=== PATIENT | female | born 1985 | race Caucasian/White ===

== ENCOUNTER 2017-10-14 15:31 | Outpatient (CLI) | payer BC, OTHER | END 2017-10-14 17:55 | disposition home or self-care (01) | LOC: OBT 15:31 → L-D 15:33 → OBT 17:55 | DX: O26.893 Other specified pregnancy related conditions, third trimester (principal); Z3A.34 34 weeks gestation of pregnancy | CPT/HCPCS: 76815; 76818 ==

== ENCOUNTER 2017-10-14 18:44 | Outpatient (CLI) | payer BC ==
[2017-11-06 10:55] LABS: RUPTURE FETAL MEMBRANES NEGATIVE (NEGATIVE)
== END 2017-11-06 11:32 | disposition home or self-care (01) ==
LOC: OBT 18:44 → L-D 11-06 10:00 → OBT 11-06 11:32
DX: O42.90 Premature rupture of membranes, unspecified as to length of time between rupture and onset of labor, unspecified weeks of gestation (principal); Z3A.37 37 weeks gestation of pregnancy
CPT/HCPCS: 76818; 84112

== ENCOUNTER 2017-11-23 20:48 | Inpatient (IN) | payer BC ==
[2017-11-23] MEDS ORDERED: LACTATED RINGER'S 1,000 ML IV (21:27)
[2017-11-23] MEDS ORDERED: LIDOCAINE 1% (MPF) 30 ML INJ INJ (21:30)
[2017-11-23] MEDS ORDERED: BUTORPHANOL 2 MG INJ IV (21:30)
[2017-11-23] MEDS ORDERED: OXYTOCIN 30 UNITS/LR 500 ML IV ×2 (21:30)
[2017-11-23] MEDS ORDERED: METHYLERGONOVINE 0.2 MG INJ IM (21:30)
[2017-11-23] MEDS ORDERED: MISOPROSTOL 200 MCG TAB PR (21:30)
[2017-11-23] MEDS ORDERED: CARBOPROST 250 MCG INJ IM (21:30)
[2017-11-23] MEDS ORDERED: IBUPROFEN 600 MG TAB PO (21:30)
[2017-11-23 22:20] LABS: ADD MAN DIFF? NO
[2017-11-23 22:25] LABS: BASOPHILS % 0.2 % (0.0-2.0); EOSINOPHILS # 0.1 10^3/ul (0.0-0.5); HEMOGLOBIN 11.4 g/dl (12.0-16.0); LYMPHOCYTES # 2.3 10^3/ul (0.8-2.9); LYMPHOCYTES % 17.5 % (15.0-51.0); MEAN CORPUSCULAR HEMOGLOBIN 31.9 pg (29.0-33.0); MEAN CORPUSCULAR HGB CONC 34.5 g/dl (32.0-37.0); MEAN CORPUSCULAR VOLUME 92.4 fl (82.0-101.0); MEAN PLATELET VOLUME 9.7 fl (7.4-10.4); MONOCYTE # 0.7 10^3/ul (0.3-0.9); MONOCYTES % 4.9 % (0.0-11.0); NEUTROPHIL # 10.1 10^3/ul (1.6-7.5); NEUTROPHILS % 75.7 % (39.0-77.0); PLATELET COUNT 211 10^3/UL (140-415); RED BLOOD COUNT 3.57 10^6/ul (4.20-5.40)
[2017-11-23 22:25] LABS: WHITE BLOOD COUNT 13.4 10^3/ul (4.8-10.8)
[2017-11-23 22:44] LABS: INR 0.89; PROTIME 12.1 Sec (11.9-14.9); PT RATIO 0.9
[2017-11-23 22:45] LABS: PARTIAL THROMBOPLASTIN TIME 29.9 Sec (25.0-35.0)
[2017-11-23] MEDS: LACTATED RINGER'S 1,000 ML IV (23:18)
[2017-11-23 23:26] LABS: HEPATITIS B SURFACE ANTIGEN NEGATIVE (NEGATIVE)
[2017-11-23 23:33] LABS: CANNABINOIDS Negative (NEGATIVE)
[2017-11-23 23:44] LABS: AMPHETAMINE/METHAMPHETAMINE Negative (NEGATIVE); BARBITURATES Negative (NEGATIVE); BENZODIAZEPINES Negative (NEGATIVE); COCAINE Negative (NEGATIVE); OPIATES Negative (NEGATIVE)
[2017-11-24] MEDS: DINOPROSTONE 10 MG VAG SUPP VAG (00:38)
[2017-11-24] MEDS: LACTATED RINGER'S 1,000 ML IV ×4 (03:54→14:43)
[2017-11-24] MEDS ORDERED: FENTAnyl 2MCG/ML-ROPIV 0.2% 100 ML (05:03)
[2017-11-24] MEDS ORDERED: NALOXONE (0.4 MG/ML) INJ IV ×2 (05:30→16:30)
[2017-11-24] MEDS ORDERED: DIPHENHYDRAMINE 50 MG INJ IV ×2 (05:30→16:30)
[2017-11-24] MEDS: ONDANSETRON 4 MG INJ IV ×2 (06:32→14:40)
[2017-11-24] MEDS ORDERED: ONDANSETRON 4 MG INJ (07:00)
[2017-11-24] MEDS ORDERED: OXYTOCIN 30 UNITS/LR 500 ML IV ×3 (07:30→18:30)
[2017-11-24] MEDS: OXYTOCIN 30 UNITS/LR 500 ML IV ×4 (08:49→23:52)
[2017-11-24] MEDS: FENTAnyl 2MCG/ML-ROPIV 0.2% 100 ML BAG EPI (11:40)
[2017-11-24] MEDS ORDERED: METHYLERGONOVINE 0.2 MG INJ IM ×2 (13:30→18:30)
[2017-11-24] MEDS ORDERED: CLINDAMYCIN 900 MG/D5W (PMX) 50 ML IV (13:30)
[2017-11-24] MEDS ORDERED: CARBOPROST 250 MCG INJ IM ×2 (13:30→18:30)
[2017-11-24] MEDS ORDERED: MISOPROSTOL 200 MCG TAB PR ×2 (13:30→18:30)
[2017-11-24] MEDS: CITRIC ACID/SODIUM CITRATE 15 ML CUP PO (14:39)
[2017-11-24] MEDS ORDERED: OXYTOCIN 10 UNIT INJ (15:43)
[2017-11-24] MEDS ORDERED: PHENYLephrine (100 MCG/ML) 5ML SYG ×2 (15:44→15:58)
[2017-11-24] MEDS ORDERED: DEXAMETHASONE 4 MG/ML 1 ML INJ (15:44)
[2017-11-24] MEDS ORDERED: EPHEDrine SULFATE 50 MG/5 ML SYG (15:58)
[2017-11-24] MEDS ORDERED: morphine SULFATE/PF (10 MG/10 ML) INJ (16:05)
[2017-11-24] MEDS ORDERED: HYDROCODONE/APAP (5/325) TAB PO ×3 (16:30→18:30)
[2017-11-24] MEDS ORDERED: NALBUPHINE HCL (10 MG/1 ML) INJ IV (16:30)
[2017-11-24] MEDS ORDERED: HYDROmorphONE 0.5 MG/0.5 ML SYG IV (16:30)
[2017-11-24] MEDS ORDERED: ONDANSETRON 4 MG INJ IV (16:30)
[2017-11-24] MEDS ORDERED: ACETAMINOPHEN 500 MG TAB PO (16:30)
[2017-11-24] MEDS ORDERED: morphine 2 MG INJ IV (16:30)
[2017-11-24] MEDS: KETOROLAC 30 MG INJ IV ×2 (17:04→23:57)
[2017-11-24] MEDS: HYDROmorphONE 0.5 MG/0.5 ML SYG IV (19:41)
[2017-11-24 21:22] LABS: RAPID PLASMA REAGIN NONREACTIVE (NR)
[2017-11-24] MEDS: SENNA/DOCUSATE NA (8.6MG/50MG) TAB PO (21:45)
[2017-11-24] MEDS: CEFAZOLIN 1 GM/50 ML (PMX) 50 ML IVPB (23:50)
[2017-11-24] MEDS: LANOLIN 7 GM TUBE TOP (23:51)
[2017-11-25] MEDS: OXYTOCIN 30 UNITS/LR 500 ML IV ×2 (02:28→06:28)
[2017-11-25] MEDS: LACTATED RINGER'S 1,000 ML IV ×2 (04:30→12:37)
[2017-11-25] MEDS: HYDROmorphONE 0.5 MG/0.5 ML SYG IV (05:06)
[2017-11-25 09:59] LABS: ADD MAN DIFF? NO
[2017-11-25] MEDS: SENNA/DOCUSATE NA (8.6MG/50MG) TAB PO ×2 (10:01→20:44)
[2017-11-25 10:05] LABS: WHITE BLOOD COUNT 12.5 10^3/ul (4.8-10.8)
[2017-11-25 10:05] LABS: BASOPHILS % 0.2 % (0.0-2.0); EOSINOPHILS # 0.1 10^3/ul (0.0-0.5); EOSINOPHILS % 0.8 % (0.0-7.0); HEMATOCRIT 29.3 % (37.0-47.0); HEMOGLOBIN 9.9 g/dl (12.0-16.0); LYMPHOCYTES # 1.7 10^3/ul (0.8-2.9); LYMPHOCYTES % 13.5 % (15.0-51.0); MEAN CORPUSCULAR HEMOGLOBIN 32.2 pg (29.0-33.0); MEAN CORPUSCULAR HGB CONC 33.8 g/dl (32.0-37.0); MEAN CORPUSCULAR VOLUME 95.4 fl (82.0-101.0); MEAN PLATELET VOLUME 9.8 fl (7.4-10.4); MONOCYTE # 0.8 10^3/ul (0.3-0.9); MONOCYTES % 6.5 % (0.0-11.0); NEUTROPHIL # 9.8 10^3/ul (1.6-7.5); NEUTROPHILS % 78.4 % (39.0-77.0); PLATELET COUNT 168 10^3/UL (140-415); RED BLOOD COUNT 3.07 10^6/ul (4.20-5.40)
[2017-11-25] MEDS: KETOROLAC 30 MG INJ IV (10:09)
[2017-11-25] MEDS: IBUPROFEN 600 MG TAB PO (18:05)
[2017-11-25] MEDS: OXYCODONE/ACETAMINOPHEN (5/325) TAB PO (20:45)
[2017-11-26] MEDS: IBUPROFEN 600 MG TAB PO ×4 (00:31→17:28)
[2017-11-26] MEDS: OXYCODONE/ACETAMINOPHEN (5/325) TAB PO ×4 (02:33→20:53)
[2017-11-26] MEDS: SENNA/DOCUSATE NA (8.6MG/50MG) TAB PO ×2 (09:45→20:53)
[2017-11-27] MEDS: IBUPROFEN 600 MG TAB PO ×2 (00:08→06:43)
[2017-11-27] MEDS: OXYCODONE/ACETAMINOPHEN (5/325) TAB PO ×2 (04:33→08:57)
[2017-11-27] MEDS: SENNA/DOCUSATE NA (8.6MG/50MG) TAB PO (08:49)
[2017-11-27] MEDS ORDERED: DIPHTH/TET/ACEL PERTUSS (ADULT) 0.5 ML VIAL IM* (09:00)
== END 2017-11-27 11:45 | disposition home or self-care (01) | DRG 765 ==
LOC: OBT 20:48 → L-D 20:49 → OBT 21:20 → L-D 21:20 → PP1 11-24 18:23
PROC: 10D00Z1 Extraction of Products of Conception, Low, Open Approach (ICD-10-PCS; principal; 2017-11-24 16:00)
PROC: 3E0P7VZ Introduction of Hormone into Female Reproductive, Via Natural or Artificial Opening (ICD-10-PCS; 2017-11-24 16:00)
DX: O40.3XX0 Polyhydramnios, third trimester, not applicable or unspecified (principal); D62 Acute posthemorrhagic anemia; O48.0 Post-term pregnancy; O76 Abnormality in fetal heart rate and rhythm complicating labor and delivery; O69.1XX0 Labor and delivery complicated by cord around neck, with compression, not applicable or unspecified; Z37.0 Single live birth; Z3A.40 40 weeks gestation of pregnancy
CPT/HCPCS: 62319; 76815; 76818; 80307; 85025; 85610; 85730; 86592; 86850; 86900; 86901; 87340; 99464